=== PATIENT | female | born 1955 | race Caucasian/White ===

== ENCOUNTER → 2016-11-27 | Outpatient (CLI) | payer BC ==
[~2016-11-27] MED LIST: CHOL1000 PO; MULT-506 PO; OMEG10007 PO; OYST500T47 PO
== END | disposition home or self-care (01) ==
LOC: C.RDSM 11:38
PROVIDERS: ATTEND Orthopaedic Surgery Sports Medicine
DX: T14.8 Other injury of unspecified body region (principal); X58.XXXA Exposure to other specified factors, initial encounter

== ENCOUNTER → 2016-11-30 | Outpatient (CLI) | payer BC ==
--- NOTE | 2016-11-30 14:54 | DIAGNOSTIC IMAGING REPORT ---
RIGHT UPPER EXTREMITY WITHOUT HISTORY:61 yearsFemaleWRIST FX Right COMPARISON: Right wrist radiographs 11/27/2016 TECHNIQUE: Multiple axial CT images of the right wrist were obtained without IV contrast. Coronal and sagittal reformatted images were obtained from the axial data set and submitted for review. Additional 3-D rendered images were obtained from a separate workstation. FINDINGS: Comminuted intra-articular fracture of the distal radial metaphysis is again seen extending into the radiocarpal joint. There is approximately 2 mm displacement of the articular surface distal radius. There is approximately 7 mm impaction 9 mm lateral displacement and 7 mm dorsal displacement. Fracture line extends into the distal radial ulnar joint are seen on image 42 the coronal series. The distal ulna appears intact. There are punctate bone fragments present within the radiocarpal joint. Subcortical cystic changes are seen within the trapezium. The scaphoid appears intact. No carpal bone fracture or dislocation is identified. The imaged metacarpals appear intact as well. Lunate distal radius alignment is within normal limits. No scapholunate widening. There is moderate likely posttraumatic soft tissue swelling about the wrist. Imaged flexor and extensor tendons appear grossly intact. There is mild subchondral sclerosis and marginal spurring of the first carpometacarpal joint. IMPRESSION: 1. Comminuted mildly displaced and impacted intra-articular fracture of the distal radius. 2. No definite additional distal forearm or carpal fracture identified. 3. Moderate soft tissue swelling. 4. Mild degenerative changes about the wrist. The above report was generated using voice recognition software. It may contain grammatical, syntax or spelling errors. Electronically signed by: Shaan Musa M.D. 11/30/2016 2:53 PM Dictated Date/Time: 11/30/2016 2:45 PM
== END | disposition home or self-care (01) ==
LOC: C.CTS 14:04
PROVIDERS: ATTEND Orthopaedic Surgery Sports Medicine
DX: S52.501A Unspecified fracture of the lower end of right radius, initial encounter for closed fracture (principal); X58.XXXA Exposure to other specified factors, initial encounter

== ENCOUNTER 2016-12-04 09:00 | Day surgery (SDC) | payer BC ==
--- NOTE | 2016-12-03 16:43 | History and Physical ---
History & Physical Date & Time of Service: Dec 03, 2016 at 16:17 Chief Complaint: Right Wrist Distal Radius Fracture Primary Care Physician: Isai Israel M.D. History of Present Illness Source: patient This 61 yo F presents to clinic today for her pre-op H&P examination. Pt fell on outstretched Right UE [place] in [facility] on . Pt hiked for 3 days to [facility] and was transported to an ED where staff was unsuccessful at reducing the fracture. Pt was advised to see an orthopedist when [place] the [place] Pt was initial evaluated by Karthik Mcclure PA-C on 11/27/16 and placed into a sugartong splint and then initially evaluated by Dr. Alicea on 11/28/16. Surgical intervention was discussed and pt stated that she would like surgery as soon as possible due to leaving on a trip for [place] on 12/08/16. Past Medical/Surgical History Past surgical history: Colonoscopy; [place] teeth extraction Past medial history: colorectal polyps Family History Mother: Breast CA; Glaucoma Father: CHF Social History Smoking Status: Never Smoker Smokeless Tobacco Use: No Alcohol Use: 1 glass of wine/day Drug Use: none Marital Status: Housing status: lives with significant other Occupational Status: employed Multi-Drug Resistant Organisms History of MDRO: No Allergies Coded Allergies: No Known Allergies (Unverified , 12/03/16) Review of Systems Home Meds: 1. Vitamin D3 2000 IU: 4816-6454 IU daily 2. Calcium Gluconate 500m9425-3504 mg daily 3. Multivitamin: unknown dosage daily 4. Fish Oil 1000 mg daily Constitutional: No fever, No chills, No sweats, No weight loss, No weakness, No fatigue, No problem reported Eyes: No worsening of vision, No eye pain, No redness, No discharge, No diplopia, No problem reported ENT: No hearing loss, No unusual epistaxis, No nasal symptoms, No sore throat, No tinnitus, No dental problems, No trouble swallowing, No problem reported Respiratory: No cough, No sputum, No wheezing, No shortness of breath, No dyspnea on exertion, No dyspnea at rest, No hemoptysis, No problem reported Cardiovascular: No chest pain, No orthopnea, No PND, No edema, No claudication , No palpitations, No problem reported Abdomen: No pain, No nausea, No vomiting, No diarrhea, No constipation, No GI bleeding, No problem reported Musculoskeletal: + problem reported (Fracture of Right distal radius (splint in place)) Neurologic: No memory loss, No paralysis, No weakness, No numbness/tingling, No vertigo, No balance problems, No problem reported Psychiatric: No depression symptoms, No anhedonism, No anxiety, No insomnia, No substance abuse, No problem reported Integumentary: No rash, No itch, No new/changing skin lesions, No color change , No bleeding, No problem reported Physical Exam General Appearance: WD/WN, no apparent distress Head: normocephalic, atraumatic Eyes: normal inspection, PERRL, EOMI ENT: normal ENT inspection, hearing grossly normal, TMs normal, pharynx normal Respiratory/Chest: chest non-tender, lungs clear, normal breath sounds, no respiratory distress, no accessory muscle use Cardiovascular: regular rate, rhythm, no edema, no gallop, no JVD, no murmur, normal peripheral pulses Abdomen/GI: normal bowel sounds, non tender, soft, no organomegaly Extremities/Musculoskelatal: + pertinent finding (Referred pain to fracture site with resisted flex and extension at IP and MCP of Rt thumb. Referred pain resisting distraction of pincer grasp. Able to resist distraction and compression of digits. Cap refill brisk. N/V intact. Able to feel light touch over pads of all digits in Right hand. Periph pulses not able to be detected due to splint placement.) Neurologic/Psych: assembler wet wash II-XII nml as tested, no motor/sensory deficits, alert, normal mood/affect, normal reflexes, oriented x 3 Skin: normal color, warm/dry, no rash Diagnostics Laboratory Results Ordered today: CBC, CMP and EKG Diagnostic Radiology x-ray results: displaced right distal radius fracture (intraarticular) with shortening and dorsal angulation. EKG pending Impression Assessment and Plan Diagnosis: Right distal radius fracture Procedure: Open Reduction Internal Fixation of Right distal radius fracture PLAN: Pt is schedule to undergo surgery with Dr. Fabricio Alicea on 12/04/16 at the [facility]. Risks and complications of the surgery such as; infection, bleeding, pain, scarring, nerve and blood vessel damage, weakness, wound problems, stiffness, incomplete relief of symptoms, heart attack, stroke, , hardware failure, malunion, nonunion and arthritis were discussed with Dr. Alicea and consent was signed to proceed. We will obtain preop CBC, CMP and EKG that patient will have done after leaving the clinic today. Pt will be scheduled for her post operative visit with Dr. Alicea on 12/25/16 @ 1 PM. Her initial visit with PT is 12/06/16 @ 8:30 AM. She was given an Rx for [place] for post operative pain control. PDMP check with no red flags raised for prescribing narcotic pain meds to the patient. Pt verbalized understanding of all information provided during today's visit and thanks us for her care. She will address any other questions or concerns to Dr. Alicea tomorrow AM. ASA Classification: ASA Class I Level of Care Med/Surg Resuscitation Status FULL RESUSCITATION VTE Prophylaxis VTE Risk Assessment Done? Y/N: Yes Risk Level: Very Low Given or contraindicated: T.E.D. Stockings (and foot pumps on LILIANA LE's) Social Service Consult None Apply Note Pt will be discharged outpatient on day of surgery (12/04/16) Additional Copies To Fabricio Alicea MD
[~2016-12-04] VITALS: Ht 160 cm; Wt 52.5 kg
[~2016-12-04 09:00] MED LIST changes: +CEFAZOLIN 1000MG/55 ML D5W IV SCH; -CHOL1000 PO; +FENTANYL CITRATE INJ 50 MCG/1 ML 2 ML VIAL ONE; +LACTATED RINGER'S 1000ML 1,000 ML IV SCH; +MIDAZOLAM HCL 1 MG/ML 2ML VIAL ONE; -MULT-506 PO; -OMEG10007 PO; -OYST500T47 PO
[2016-12-04 09:34] VITALS: BP 110/69; PULSE 50; TEMP 36.6; O2SAT 100; Ht 160 cm; Wt 52.5 kg
[2016-12-04] MEDS ORDERED: OMEG10007 PO (09:55)
[2016-12-04] MEDS ORDERED: MULT-506 PO (09:55)
[2016-12-04] MEDS ORDERED: OYST500T47 PO (09:55)
[2016-12-04] MEDS ORDERED: CHOL1000 PO (09:55)
[2016-12-04] MEDS ORDERED: ONDANSETRON INJ 2 MG/ML 2 ML VIAL IV PRN ×2 (10:30→13:45)
[2016-12-04] MEDS ORDERED: EpHEDrine SULFATE INJ 50 MG/ML AMP IV PRN (10:30)
[2016-12-04] MEDS ORDERED: HYDROmorphone INJ 1 MG/ML SYR IV PRN (10:30)
[2016-12-04] MEDS ORDERED: ATROPINE SULFATE 0.1 MG/ML 5ML SYR IV PRN (10:30)
[2016-12-04] MEDS ORDERED: PROMETHAZINE HCL INJ 12.5 MG in SODIUM CHLORIDE 0.9% 50ML 50 ML IV PRN (10:30)
[2016-12-04] MEDS ORDERED: BUPIVACAINE/EPINEPHRINE 0.5% MPF 1:200,000 10 ML VIAL ONE (10:38)
[2016-12-04] MEDS ORDERED: LIDOCAINE HCL 1% 20 ML VIAL ONE (10:38)
--- NOTE | 2016-12-04 10:49 | History & Physical Bridge Note ---
H&P Re-Evaluation Bridge Note: I have examined the patient, reviewed the History & Physical and in the interval since the performance of the History & Physical I have noted the following changes of clinical significance: No changes noted
[2016-12-04] MEDS ORDERED: DEXAMETHASONE SOD INJ 4 MG/ML VIAL ONE (11:03)
[2016-12-04] MEDS ORDERED: PHENYLEPHRINE 100MCG/ML 5ML SYR ONE (11:11)
[2016-12-04] MEDS ORDERED: EpHEDrine SULFATE 50MG/5ML SYR ONE (11:11)
[2016-12-04] MEDS ORDERED: ONDANSETRON INJ 2 MG/ML 2 ML VIAL ONE (11:35)
[2016-12-04] MEDS ORDERED: LIDOCAINE HCL 2% 2 ML VIAL (20MG/ML) ONE (11:35)
[2016-12-04] MEDS ORDERED: PROPOFOL IV EMULSION 10 MG/ML 20 ML VIAL IV ONE (11:35)
[2016-12-04] MEDS ORDERED: FENTANYL CITRATE INJ 50 MCG/1 ML 2 ML VIAL ONE (11:47)
--- NOTE | 2016-12-04 13:43 | [facility] Post Operative Brief Note ---
Immediate Operative Summary Operative Date Dec 04, 2016. Pre-Operative Diagnosis Right distal radial fracture Post-Operative Diagnosis Right distal radial fracture Procedure(s) Performed Open Reduction Internal Fixation Right Wrist Fracture, Intra-articular Surgeon Dr. Fabricio Alicea Senior Applications Architect Surgeon(s) Dr. Tim Louie Estimated Blood Loss 12ML Findings Displaced 2 part intra-articular right distal radius fracture. Fluids (cc crystalloids) 1000 Specimens none per surgeon Dr. Fabricio Alicea Drains n/a Anesthesia LMA Complication(s) None Disposition Recovery Room / PACU (Stable)
[2016-12-04] MEDS ORDERED: OXYCODONE/ACETAMINOPHEN 5-325 TAB PO PRN (13:45)
[2016-12-04] MEDS ORDERED: MoRPHine SULFATE 2 MG/ML CARP IV PRN (13:45)
[2016-12-04] MEDS ORDERED: MoRPHine SULFATE 4 MG/ML 1 ML CARP\\VIAL IV PRN (13:45)
--- NOTE | 2016-12-04 13:46 | Discharge Instructions ---
Discharge Instructions Date of Service Dec 04, 2016. Admission Reason for Admission: Right Wrist Distal Radius Fracture Discharge Discharge Diagnosis / Problem: Status post ORIF Right wrist fracture Discharge Goals Goal(s): Decrease discomfort, Improve function, Increase independence Activity Recommendations Activity Limitations: per Instructions/Follow-up section (Nothing more than cup of coffee) May Resume Sexual Activity: when tolerated Shower/Bathe: may shower/bathe in 3 days Driving or Machine Use: Not while on narcotics or in splint/brace . Instructions / Follow-Up Instructions / Follow-Up PT in [address] Alicea upon return from vacation. Current Hospital Diet Patient's current hospital diet: Regular Diet Discharge Diet Recommended Diet: Regular Diet Procedures Procedures Performed: Open Reduction Internal Fixation Right Wrist Fracture, Intra-articular Pending Studies Studies pending at discharge: no Medical Emergencies . Who to Call and When: Medical Emergencies: If at any time you feel your situation is an emergency, please call 911 immediately. . Non-Emergent Contact Non-Emergency issues call your: Surgeon Call Non-Emergent contact if: temperature is above 101.5, your pain is not controlled, wound has increased drainage, wound has increased redness . "Provider Documentation" section prepared by Fabricio Alicea. . VTE Core Measure Inpt VTE Proph given/why not?: T.E.D. Stockings (and foot pumps on LILIANA LE's)
--- NOTE | 2016-12-04 13:49 | [facility] Operative Report ---
Operative Report Operative Date Dec 04, 2016. Pre-Operative Diagnosis Right distal radial fracture Post-Operative Diagnosis Right distal radial fracture Procedure(s) Performed Open Reduction Internal Fixation Right Wrist Fracture, Intra-articular Surgeon Dr. Fabricio Alicea Penology Teacher Surgeon(s) Dr. Tim Louie Estimated Blood Loss 12ML Findings Displaced 2 part intra-articular distal radius fracture. Fluids 1000 Specimens none per surgeon Dr. Fabricio Alicea Drains n/a Anesthesia LMA Disposition Recovery Room / PACU (Stable) Indications Patient is a 61 year old female, RHD, with x-ray, CT, and clinical exam findings consistent with an displaced, intra-articular right distal radius fracture. After a lengthy discussion with the patient regarding their treatment options, I recommended that they undergo an ORIF of her right distal radius fracture. The risk of surgery were discussed and include but not limited to: bleeding, nerve damage, infection, failure of the hardware, mal- union, non-union, continued pain, progression of arthritis, decreased activity level, and DVT. They understood all the risks and benefits and wished to proceed with surgery. The informed consent was signed. Description of Procedure IMPLANTS: 1) 2 hole 2.4 mm VA Distal Radius Volar Plate ([email or web address]). 2) 2.4 mm Locking screws (18 x2, 20 x2, & 8 mm x2). PROCEDURE: The patient was taken to the Operating Room and placed in the supine position on the operating table. After general anesthetic was administered a multidisciplinary time-out was performed identifying my initials on the right upper limb as the correct and operative limb. Prior to the incision being made , 1 gram of intravenous Ancef were given. The splint was removed. The right upper extremity was prepped and draped in the standard sterile fashion. The planned incision was marked volarly ulnar to the radial artery. It was injected with a 50:50 mixture of 1% Lidocaine plain and 0.5% Marcaine with epi for a total of 10cc. The limb was then exsanguinated by gravity for 3 minutes before inflating the tourniquet to 250mmHg. The planned incision was made and carried to the FCR. The sheath was incised and the FCR displaced radially to allow for the floor to be incised. Blunt dissection allowed exposure of the Pronator Quadratus. The distal fragments was easily identified. The main volar pieces were debrided to allow for the best reduction with combination of freer, dental pick, rongeur, and irrigation/ suction. A reduction maneuver was performed and required 3 K wires to reduce and hold the fragments together. The styloid fragment was comminuted proximally. Fluoro was used to confirm the reduced fracture and the plates proper placement. The distal holes were filled first, followed by the proximal screws, which re-created the normal volar tilt. The wounds were copiously irrigated. Final x-rays were taken showing anatomic reduction. The Pronator Quadratus was closed over the plate distally with 2-0 Vicryl. The tourniquet was deflated. Hemostasis was obtained with cautery, a small vessel was repaired with 4-0 Prolene. The subcutaneous layer was closed with 4-0 Vicryl. The Skin was closed with 4-0 Monocryl with buried knots in a subcuticular fashion. Steri-Strips were placed over top. The limb was cleaned and dried. The incision was covered with Xeroform, 4x4's, ADB, sterile cast padding a resting volar splint and SINA bandage. The sponge and needle counts were correct. POST-OP INSTRUCTIONS. The patient will continue with the splint until their follow-up in PT visit where they will be placed in a thermoplastic removable cockup wrist splint. Pain medication was given to be used as needed. No lifting with right hand more than a cup of coffee. The patient will follow up with me upon her return from her [place] vacation. I attest to the content of the Intraoperative Record and any orders documented therein. Any exceptions are noted below.
--- NOTE | 2016-12-04 14:04 | DIAGNOSTIC IMAGING REPORT ---
RIGHT WRIST 2 VIEWS CLINICAL HISTORY: 61 years-old Female presenting with ORIF RT WRIST. TECHNIQUE: 3 fluoroscopic spot images of the right wrist were obtained intraoperatively. COMPARISON: 11/27/2016. FINDINGS: Interval triangular compression plate and screw fixation of the comminuted intra-articular distal radial fracture. Previously noted apex volar angulation of the fracture site has been corrected. However, the dominant distal fracture fragment encompassing the radial styloid remains displaced radially. Radiocarpal and intercarpal articulations appear preserved. Fluoroscopic time: 1. 56 minutes. IMPRESSION: 1. Displacement of the radial styloid fracture fragment status post plate and screw fixation of the comminuted, intra-articular distal radial fracture. This may be within the expected range of acceptable postsurgical findings. 2. Please see separately dictated surgical report for further details. Electronically signed by: Flaquito Mccarty M.D. 12/04/2016 2:03 PM Dictated Date/Time: 12/04/2016 1:59 PM
[2016-12-04] MEDS: FENTANYL CITRATE INJ 50 MCG/1 ML 2 ML VIAL IV PRN ×2 (14:19→14:24)
--- NOTE | 2016-12-04 14:56 | Anesthesiology Progress Note ---
Anesthesia Post Op Note Date & Time Dec 04, 2016 at 14:56 Vital Signs Pain Intensity: 2 Vital Signs Past 12 Hours Date Time Temp Pulse Resp B/P (MAP) Pulse Ox O2 Delivery O2 Flow Rate FiO2 12/04/16 14:45 36.4 12/04/16 14:40 36.4 52 16 122/67 99 Room Air 12/04/16 14:30 54 16 118/67 96 Room Air 12/04/16 14:20 51 16 124/70 99 Mask 10 12/04/16 14:10 53 16 125/70 100 Mask 10 12/04/16 14:01 36.6 61 16 112/68 100 Mask 10 12/04/16 09:34 36.6 50 20 110/69 (83) 100 Room Air Notes Mental Status: alert / awake / arousable, participated in evaluation Pt Amnestic to Procedure: Yes Nausea / Vomiting: adequately controlled Pain: adequately controlled Airway Patency, RR, SpO2: stable & adequate BP & HR: stable & adequate Hydration State: stable & adequate Anesthetic Complications: no major complications apparent
[2016-12-04 15:20] VITALS: BP 128/66; PULSE 53; TEMP 36.8; O2SAT 100
== END 2016-12-04 16:05 | disposition home or self-care (01) ==
LOC: C.ACU 09:00
PROVIDERS: ATTEND Orthopaedic Surgery Sports Medicine
DX: S52.571A Other intraarticular fracture of lower end of right radius, initial encounter for closed fracture (principal); W01.0XXA Fall on same level from slipping, tripping and stumbling without subsequent striking against object, initial encounter; Y93.01 Activity, walking, marching and hiking; Y92.838 Other recreation area as the place of occurrence of the external cause

== ENCOUNTER → 2017-01-23 | Outpatient (CLI) | payer BC ==
[~2017-01-23] MED LIST changes: -CEFAZOLIN 1000MG/55 ML D5W IV SCH; +CHOL1000 PO; -FENTANYL CITRATE INJ 50 MCG/1 ML 2 ML VIAL ONE; -LACTATED RINGER'S 1000ML 1,000 ML IV SCH; -MIDAZOLAM HCL 1 MG/ML 2ML VIAL ONE; +MULT-506 PO; +OMEG10007 PO; +OYST500T47 PO
== END | disposition home or self-care (01) ==
LOC: C.RDSM 08:16
PROVIDERS: ATTEND Orthopaedic Surgery Sports Medicine
DX: Z09 Encounter for follow-up examination after completed treatment for conditions other than malignant neoplasm (principal)